=== PATIENT | female | born 1945 | race Caucasian/White ===

== ENCOUNTER 2021-03-26 17:43 | Emergency (ER) | payer MEDICARE, MEDICAID ==
[2021-03-26 18:03] LABS: Bilirubin Negative (Negative); Blood, Urine Moderate (Negative); Clarity Cloudy (Clear); Glucose, Urine (Dipstick) Negative (Negative); Ketone, Urine Negative (Negative); Leukocyte Large (Negative); Nitrite Negative (Negative); Protein, Urine (Dipstick) 30 mg/dL (Neg-Trace); Urobilinogen 0.2 mg/dL (Less than 2)
[2021-03-26 18:06] LABS: Bacteria/HPF 3+ HPF (None Seen); RBC/HPF 0-3 HPF (0-3); Squamous Epithelial 0-3 HPF (0-3); WBC/HPF Greater Than 50 HPF (0-3)
[2021-03-26 18:23] LABS: #Basophils 0.1 thou/uL (0.0-0.2); #Lymphocytes 0.4 thou/uL (1.20-3.40); #Monocytes 0.5 thou/uL (0.11-0.59); #Neutrophils 3.2 thou/uL (1.40-6.50); %Basophils 1.3 % (0.0-1.0); %Eosinophils 0.6 % (0.0-10.0); %Lymphocytes 10.1 % (21.0-51.0); %Monocytes 12.6 % (0.0-10.0); %Neutrophils 75.3 % (42.0-75.0); Hemoglobin 9.2 g/dL (12.0-16.0); Mean Corpuscular Hemoglobin 31.3 pg (27.0-31.0); Mean Corpuscular Volume 89.4 fL (78.0-98.0); Mean Platelet Volume 6.2 fL (7.4-10.4); Platelet Count 191 thou/uL (130-400); RBC Distribution Width 14.1 % (11.5-14.5); Red Blood Cell (RBC) Count 2.95 mill/uL (4.20-5.40); White Blood Cell (WBC) Count 4.3 thou/uL (4.8-10.8)
[2021-03-26] MEDS ORDERED: cefTRIAXone\\ROCEPHIN 1 GM VIAL ONE (18:35)
[2021-03-26] MEDS ORDERED: Sodium Chloride 0.9% 100 ML ONE (18:35)
[2021-03-26 18:37] LABS: ALT (SGPT) 10 U/L (8-55); AST (SGOT) 13 U/L (5-34); Albumin 2.5 g/dL (3.4-4.8); Alkaline Phosphatase 63 U/L (40-110); Anion Gap 16 mmol/L (10-20); BUN (Urea Nitrogen) 20 mg/dL (9.8-20.1); Bilirubin, Total 0.7 mg/dL (0.2-1.2); Calc. Creatinine Clearance 0 mL/min (70-130); Calcium 8.4 mg/dL (7.8-10.44); Carbon Dioxide 23 mmol/L (23-31); Chloride 102 mmol/L (98-107); Globulin 3.6 g/dL (2.4-3.5); Glucose 172 mg/dL (83-110); Potassium 4.6 mmol/L (3.5-5.1); Protein, Total 6.1 g/dL (5.8-8.1); Sodium 136 mmol/L (136-145)
== END 2021-03-26 19:05 | disposition home or self-care (01) ==
LOC: BURERS 17:43
DX: N39.0 Urinary tract infection, site not specified (principal); E11.9 Type 2 diabetes mellitus without complications; I10 Essential (primary) hypertension; Z79.899 Other long term (current) drug therapy; Z79.4 Long term (current) use of insulin
CPT/HCPCS: 80053; 81003; 81015; 83605; 84484; 85025; 87077; 87086; 87186; 96374; J0696; J3490

== ENCOUNTER 2021-06-14 19:00 | Emergency (ER) | payer MEDICARE, MEDICAID ==
[2021-06-14 20:06] LABS: #Basophils 0.1 thou/uL (0.0-0.2); #Eosinphils 0.3 thou/uL (0.0-0.7); #Lymphocytes 1.2 thou/uL (1.20-3.40); #Monocytes 0.4 thou/uL (0.11-0.59); #Neutrophils 2.7 thou/uL (1.40-6.50); %Basophils 1.7 % (0.0-1.0); %Eosinophils 5.8 % (0.0-10.0); %Lymphocytes 26.3 % (21.0-51.0); %Monocytes 9.1 % (0.0-10.0); %Neutrophils 57.1 % (42.0-75.0); Hemoglobin 12.2 g/dL (12.0-16.0); Mean Corpuscular HGB CONC 34.6 g/dL (32.0-36.0); Mean Corpuscular Hemoglobin 29.3 pg (27.0-31.0); Mean Corpuscular Volume 84.6 fL (78.0-98.0); Mean Platelet Volume 7.6 fL (7.4-10.4); Platelet Count 135 thou/uL (130-400); RBC Distribution Width 13.7 % (11.5-14.5); Red Blood Cell (RBC) Count 4.16 mill/uL (4.20-5.40); White Blood Cell (WBC) Count 4.7 thou/uL (4.8-10.8)
[2021-06-14 20:08] LABS: Bilirubin Negative (Negative); Blood, Urine Small (Negative); Clarity Cloudy (Clear); Glucose, Urine (Dipstick) Negative (Negative); Ketone, Urine Negative (Negative); Leukocyte Large (Negative); Nitrite Negative (Negative); Protein, Urine (Dipstick) 30 mg/dL (Neg-Trace); Urobilinogen 0.2 mg/dL (Less than 2)
[2021-06-14 20:15] LABS: RBC/HPF 0-3 HPF (0-3); Squamous Epithelial 0-3 HPF (0-3); Transitional Epithelial 0-3 HPF (None Seen); WBC/HPF Greater than 50 HPF (0-3)
[2021-06-14 20:16] LABS: Bacteria/HPF 3+ HPF (None Seen); Epithelial Cast 0-3 LPF (None Seen)
[2021-06-14 20:24] LABS: ALT (SGPT) 18 U/L (8-55); AST (SGOT) 23 U/L (5-34); Albumin 3.3 g/dL (3.4-4.8); Alkaline Phosphatase 57 U/L (40-110); Anion Gap 13 mmol/L (10-20); BUN (Urea Nitrogen) 24 mg/dL (9.8-20.1); Bilirubin, Total 0.5 mg/dL (0.2-1.2); Calc. Creatinine Clearance 0 mL/min (70-130); Calcium 9.7 mg/dL (7.8-10.44); Carbon Dioxide 26 mmol/L (23-31); Chloride 104 mmol/L (98-107); Globulin 3.9 g/dL (2.4-3.5); Glucose 159 mg/dL (83-110); Potassium 4.3 mmol/L (3.5-5.1); Protein, Total 7.2 g/dL (5.8-8.1); Sodium 139 mmol/L (136-145)
[2021-06-14] MEDS ORDERED: Nitrofurantoin Monohyd/M-Cryst 100 MG CAP ONE (20:59)
== END 2021-06-14 21:05 | disposition home or self-care (01) ==
LOC: BURERS 19:00
DX: N39.0 Urinary tract infection, site not specified (principal); E11.9 Type 2 diabetes mellitus without complications; I10 Essential (primary) hypertension; Z79.4 Long term (current) use of insulin; Z79.899 Other long term (current) drug therapy
CPT/HCPCS: 36415; 71045; 80053; 81003; 81015; 85025; 87077; 87086; 87186; 99283

== ENCOUNTER 2022-05-16 15:27 | Inpatient (IN) | payer MEDICARE, MEDICAID ==
[2022-05-16 16:56] VITALS: BMI 22.2
[2022-05-16] MEDS ORDERED: Senokot S 8.6-50 MG TAB PO PRN (17:37)
[2022-05-16] MEDS: traMADol HCl 50 MG TAB PO PRN (21:30)
[2022-05-16] MEDS: ALPHA LIPOIC ACID 300 MG PO SCH (21:35)
[2022-05-17] MEDS ORDERED: Polyethylene Glycol OPTH DROP 15 ML BOT EA EYE SCH (09:00)
[2022-05-17] MEDS: Alogliptin 6.25 MG TAB PO SCH (09:44)
[2022-05-17] MEDS: Losartan 25 MG TAB PO SCH (09:44)
[2022-05-17] MEDS: ALPHA LIPOIC ACID 300 MG PO SCH ×2 (09:45→20:59)
[2022-05-17] MEDS: Polyethylene Glycol 3350 17 GM Packet PO SCH ×2 (09:45→21:00)
[2022-05-17] MEDS: ASCORBIC ACID PO SCH (09:46)
[2022-05-17] MEDS: CRANBERRY PO SCH (09:46)
[2022-05-17] MEDS: traMADol HCl 50 MG TAB PO PRN ×2 (09:50→18:10)
[2022-05-17 11:25] LABS: Hemoglobin A1c 6.9 % (4.0-6.0)
[2022-05-18] MEDS: Losartan 25 MG TAB PO SCH (10:30)
[2022-05-18] MEDS: Alogliptin 6.25 MG TAB PO SCH (10:30)
[2022-05-18] MEDS: CRANBERRY PO SCH (10:31)
[2022-05-18] MEDS: ASCORBIC ACID PO SCH (10:31)
[2022-05-18] MEDS: Polyethylene Glycol 3350 17 GM Packet PO SCH ×2 (10:31→20:50)
[2022-05-18] MEDS: ALPHA LIPOIC ACID 300 MG PO SCH ×2 (10:31→20:50)
[2022-05-18] MEDS: traMADol HCl 50 MG TAB PO PRN ×2 (10:48→20:48)
[2022-05-18] MEDS: Timolol 0.5% Ophth Soln 5 ml Bottle L EYE SCH (20:47)
[2022-05-18] MEDS: Brimonidine Tartrate 0.2% Ophth Soln 5 ml Bottle L EYE SCH (20:48)
[2022-05-19] MEDS: Timolol 0.5% Ophth Soln 5 ml Bottle L EYE SCH (10:12)
[2022-05-19] MEDS: Brimonidine Tartrate 0.2% Ophth Soln 5 ml Bottle L EYE SCH ×2 (10:13→21:43)
[2022-05-19] MEDS: Alogliptin 6.25 MG TAB PO SCH (10:14)
[2022-05-19] MEDS: Proctozone-HC 30 GM TUBE TOP PRN (10:14)
[2022-05-19] MEDS: ASCORBIC ACID PO SCH (10:14)
[2022-05-19] MEDS: Polyethylene Glycol 3350 17 GM Packet PO SCH ×2 (10:14→21:43)
[2022-05-19] MEDS: CRANBERRY PO SCH (10:14)
[2022-05-19] MEDS: ALPHA LIPOIC ACID 300 MG PO SCH ×2 (10:14→21:44)
[2022-05-19] MEDS: traMADol HCl 50 MG TAB PO PRN (10:25)
[2022-05-19] MEDS: Losartan 25 MG TAB PO SCH ×2 (10:28→21:43)
[2022-05-19] MEDS: Timolol 0.25% Ophth Soln 5 ml Bottle L EYE SCH (21:45)
[2022-05-20] MEDS: Polyethylene Glycol 3350 17 GM Packet PO SCH ×2 (08:52→21:19)
[2022-05-20] MEDS: Losartan 25 MG TAB PO SCH ×2 (08:54→21:17)
[2022-05-20] MEDS: Alogliptin 6.25 MG TAB PO SCH (08:54)
[2022-05-20] MEDS: Brimonidine Tartrate 0.2% Ophth Soln 5 ml Bottle L EYE SCH (08:56)
[2022-05-20] MEDS: Timolol 0.25% Ophth Soln 5 ml Bottle L EYE SCH (08:58)
[2022-05-20] MEDS: CRANBERRY PO SCH (09:01)
[2022-05-20] MEDS: ASCORBIC ACID PO SCH (09:01)
[2022-05-20] MEDS: ALPHA LIPOIC ACID 300 MG PO SCH ×2 (09:01→21:18)
[2022-05-20] MEDS: traMADol HCl 50 MG TAB PO PRN (16:08)
[2022-05-20] MEDS ORDERED: Timolol 0.25% Ophth Soln 5 ml Bottle EA EYE SCH (21:00)
[2022-05-20] MEDS: Brimonidine Tartrate 0.2% Ophth Soln 5 ml Bottle EA EYE SCH (21:15)
[2022-05-21 06:01] LABS: Anion Gap 12 mmol/L (10-20); BUN (Urea Nitrogen) 10 mg/dL (9.8-20.1); Calc. Creatinine Clearance 60 mL/min (70-130); Calcium 8.8 mg/dL (7.8-10.44); Carbon Dioxide 27 mmol/L (23-31); Chloride 101 mmol/L (98-107); Estimated GFR 92; Glucose 182 mg/dL (83-110); Sodium 136 mmol/L (136-145)
[2022-05-21 07:41] LABS: #Basophils 0.1 thou/uL (0.0-0.2); #Eosinphils 0.1 thou/uL (0.0-0.7); #Lymphocytes 1.3 thou/uL (1.20-3.40); #Monocytes 0.5 thou/uL (0.11-0.59); #Neutrophils 3.3 thou/uL (1.40-6.50); %Basophils 1.3 % (0.0-1.0); %Eosinophils 1.9 % (0.0-10.0); %Lymphocytes 24.1 % (21.0-51.0); %Monocytes 10.1 % (0.0-10.0); %Neutrophils 62.5 % (42.0-75.0); Hemoglobin 11.3 g/dL (12.0-16.0); Mean Corpuscular HGB CONC 36.4 g/dL (32.0-36.0); Mean Corpuscular Hemoglobin 31.3 pg (27.0-31.0); Mean Platelet Volume 7.6 fL (7.4-10.4); Platelet Count 168 thou/uL (130-400); RBC Distribution Width 11.9 % (11.5-14.5); Red Blood Cell (RBC) Count 3.59 mill/uL (4.20-5.40); White Blood Cell (WBC) Count 5.3 thou/uL (4.8-10.8)
[2022-05-21] MEDS: Dorzolamide HCl 2% Ophth Soln 10 ml Bottle EA EYE SCH ×2 (09:29→21:26)
[2022-05-21] MEDS: Losartan 25 MG TAB PO SCH ×2 (09:33→21:25)
[2022-05-21] MEDS: Alogliptin 6.25 MG TAB PO SCH (09:33)
[2022-05-21] MEDS: ALPHA LIPOIC ACID 300 MG PO SCH ×2 (09:34→21:26)
[2022-05-21] MEDS: Polyethylene Glycol 3350 17 GM Packet PO SCH ×2 (09:34→21:28)
[2022-05-21] MEDS: Brimonidine Tartrate 0.2% Ophth Soln 5 ml Bottle EA EYE SCH ×2 (09:35→21:27)
[2022-05-21] MEDS: Timolol 0.5% Ophth Soln 5 ml Bottle L EYE SCH ×2 (09:36→21:27)
[2022-05-21] MEDS: Proctozone-HC 30 GM TUBE TOP PRN (09:37)
[2022-05-21] MEDS: traMADol HCl 50 MG TAB PO PRN ×2 (10:00→21:47)
[2022-05-21] MEDS: Latanoprost 0.005% Ophth Soln 2.5 ml Bottle L EYE SCH (21:26)
[2022-05-22] MEDS: Polyethylene Glycol 3350 17 GM Packet PO SCH ×3 (00:07→22:22)
[2022-05-22] MEDS: Timolol 0.5% Ophth Soln 5 ml Bottle L EYE SCH ×2 (09:11→22:17)
[2022-05-22] MEDS: traMADol HCl 50 MG TAB PO PRN (09:17)
[2022-05-22] MEDS: Losartan 25 MG TAB PO SCH ×2 (09:19→22:16)
[2022-05-22] MEDS: Alogliptin 6.25 MG TAB PO SCH (09:19)
[2022-05-22] MEDS: Brimonidine Tartrate 0.2% Ophth Soln 5 ml Bottle EA EYE SCH ×2 (09:20→22:16)
[2022-05-22] MEDS: Dorzolamide HCl 2% Ophth Soln 10 ml Bottle EA EYE SCH ×2 (09:20→22:18)
[2022-05-22] MEDS: ALPHA LIPOIC ACID 300 MG PO SCH ×2 (09:21→22:16)
[2022-05-22] MEDS: Latanoprost 0.005% Ophth Soln 2.5 ml Bottle L EYE SCH (22:17)
[2022-05-22] MEDS: Proctozone-HC 30 GM TUBE TOP PRN (22:35)
[2022-05-23] MEDS: Polyethylene Glycol 3350 17 GM Packet PO SCH ×2 (09:00→21:57)
[2022-05-23] MEDS: Losartan 25 MG TAB PO SCH ×2 (09:00→21:46)
[2022-05-23] MEDS: Brimonidine Tartrate 0.2% Ophth Soln 5 ml Bottle EA EYE SCH ×2 (09:02→21:48)
[2022-05-23] MEDS: Alogliptin 6.25 MG TAB PO SCH (09:02)
[2022-05-23] MEDS: Timolol 0.5% Ophth Soln 5 ml Bottle L EYE SCH ×2 (09:03→21:56)
[2022-05-23] MEDS: Dorzolamide HCl 2% Ophth Soln 10 ml Bottle EA EYE SCH ×2 (09:03→21:44)
[2022-05-23] MEDS: ALPHA LIPOIC ACID 300 MG PO SCH ×2 (09:04→21:46)
[2022-05-23] MEDS: traMADol HCl 50 MG TAB PO PRN (17:24)
[2022-05-23] MEDS: Latanoprost 0.005% Ophth Soln 2.5 ml Bottle L EYE SCH (21:53)
[2022-05-24] MEDS: traMADol HCl 50 MG TAB PO PRN ×2 (01:37→09:50)
[2022-05-24] MEDS: Losartan 25 MG TAB PO SCH ×2 (09:36→21:47)
[2022-05-24] MEDS: Timolol 0.5% Ophth Soln 5 ml Bottle L EYE SCH ×2 (09:36→22:13)
[2022-05-24] MEDS: Alogliptin 6.25 MG TAB PO SCH (09:36)
[2022-05-24] MEDS: Dorzolamide HCl 2% Ophth Soln 10 ml Bottle EA EYE SCH ×2 (09:36→21:50)
[2022-05-24] MEDS: Polyethylene Glycol 3350 17 GM Packet PO SCH ×2 (09:37→21:48)
[2022-05-24] MEDS: ALPHA LIPOIC ACID 300 MG PO SCH ×3 (09:37→22:05)
[2022-05-24] MEDS: Brimonidine Tartrate 0.2% Ophth Soln 5 ml Bottle EA EYE SCH ×2 (09:37→21:45)
[2022-05-24] MEDS: Latanoprost 0.005% Ophth Soln 2.5 ml Bottle L EYE SCH (21:52)
[2022-05-25] MEDS: Ondansetron ODT 4 MG TAB SL PRN (06:52)
[2022-05-25] MEDS: traMADol HCl 50 MG TAB PO PRN ×2 (07:36→12:04)
[2022-05-25] MEDS: Brimonidine Tartrate 0.2% Ophth Soln 5 ml Bottle EA EYE SCH ×2 (09:02→22:36)
[2022-05-25] MEDS: Dorzolamide HCl 2% Ophth Soln 10 ml Bottle EA EYE SCH ×2 (09:02→22:19)
[2022-05-25] MEDS: Timolol 0.5% Ophth Soln 5 ml Bottle L EYE SCH ×2 (09:03→22:42)
[2022-05-25] MEDS: Alogliptin 6.25 MG TAB PO SCH (09:03)
[2022-05-25] MEDS: Polyethylene Glycol 3350 17 GM Packet PO SCH ×2 (09:03→22:19)
[2022-05-25] MEDS: ALPHA LIPOIC ACID 300 MG PO SCH ×2 (09:03→22:43)
[2022-05-25] MEDS: Losartan 25 MG TAB PO SCH ×2 (09:03→22:19)
[2022-05-25] MEDS: Latanoprost 0.005% Ophth Soln 2.5 ml Bottle L EYE SCH (22:39)
[2022-05-26] MEDS: Alogliptin 6.25 MG TAB PO SCH (10:06)
[2022-05-26] MEDS: Losartan 25 MG TAB PO SCH ×2 (10:06→21:41)
[2022-05-26] MEDS: Brimonidine Tartrate 0.2% Ophth Soln 5 ml Bottle EA EYE SCH ×2 (10:07→21:43)
[2022-05-26] MEDS: ALPHA LIPOIC ACID 300 MG PO SCH ×2 (10:07→21:45)
[2022-05-26] MEDS: Timolol 0.5% Ophth Soln 5 ml Bottle L EYE SCH ×2 (10:07→21:53)
[2022-05-26] MEDS: Polyethylene Glycol 3350 17 GM Packet PO SCH ×2 (10:08→21:41)
[2022-05-26] MEDS: Dorzolamide HCl 2% Ophth Soln 10 ml Bottle EA EYE SCH ×2 (10:08→21:40)
[2022-05-26] MEDS: traMADol HCl 50 MG TAB PO PRN ×2 (10:21→21:49)
[2022-05-26] MEDS: Latanoprost 0.005% Ophth Soln 2.5 ml Bottle L EYE SCH (21:50)
[2022-05-27] MEDS: Ondansetron ODT 4 MG TAB SL PRN (09:29)
[2022-05-27] MEDS: Dorzolamide HCl 2% Ophth Soln 10 ml Bottle EA EYE SCH ×2 (09:30→21:03)
[2022-05-27] MEDS: Polyethylene Glycol 3350 17 GM Packet PO SCH ×2 (09:30→20:54)
[2022-05-27] MEDS: Losartan 25 MG TAB PO SCH ×2 (09:32→20:54)
[2022-05-27] MEDS: Alogliptin 6.25 MG TAB PO SCH (09:33)
[2022-05-27] MEDS: Timolol 0.5% Ophth Soln 5 ml Bottle L EYE SCH ×2 (09:33→21:08)
[2022-05-27] MEDS: ALPHA LIPOIC ACID 300 MG PO SCH ×2 (09:34→21:05)
[2022-05-27] MEDS: Brimonidine Tartrate 0.2% Ophth Soln 5 ml Bottle EA EYE SCH ×2 (09:35→20:52)
[2022-05-27] MEDS: traMADol HCl 50 MG TAB PO PRN (09:48)
[2022-05-27] MEDS: Latanoprost 0.005% Ophth Soln 2.5 ml Bottle L EYE SCH (20:56)
[2022-05-28] MEDS: Ondansetron ODT 4 MG TAB SL PRN (07:36)
[2022-05-28] MEDS: traMADol HCl 50 MG TAB PO PRN (08:42)
[2022-05-28] MEDS: Megestrol Acetate 40 MG TAB PO SCH ×2 (08:45→20:27)
[2022-05-28] MEDS: Losartan 25 MG TAB PO SCH ×2 (08:45→20:27)
[2022-05-28] MEDS: Alogliptin 6.25 MG TAB PO SCH (08:45)
[2022-05-28] MEDS: Polyethylene Glycol 3350 17 GM Packet PO SCH ×2 (08:46→20:41)
[2022-05-28] MEDS: Dorzolamide HCl 2% Ophth Soln 10 ml Bottle EA EYE SCH ×2 (08:47→20:32)
[2022-05-28] MEDS: ALPHA LIPOIC ACID 300 MG PO SCH ×2 (08:47→20:28)
[2022-05-28] MEDS: Timolol 0.5% Ophth Soln 5 ml Bottle L EYE SCH ×2 (09:08→20:44)
[2022-05-28] MEDS: Brimonidine Tartrate 0.2% Ophth Soln 5 ml Bottle EA EYE SCH ×2 (09:08→20:26)
[2022-05-28] MEDS: Latanoprost 0.005% Ophth Soln 2.5 ml Bottle L EYE SCH (20:39)
[2022-05-29] MEDS: Ondansetron ODT 4 MG TAB SL PRN ×2 (00:37→08:18)
[2022-05-29] MEDS: traMADol HCl 50 MG TAB PO PRN ×2 (08:17→22:51)
[2022-05-29] MEDS: Losartan 25 MG TAB PO SCH ×2 (08:17→20:46)
[2022-05-29] MEDS: Dorzolamide HCl 2% Ophth Soln 10 ml Bottle EA EYE SCH ×2 (08:19→20:56)
[2022-05-29] MEDS: Timolol 0.5% Ophth Soln 5 ml Bottle L EYE SCH ×2 (08:19→20:44)
[2022-05-29] MEDS: Brimonidine Tartrate 0.2% Ophth Soln 5 ml Bottle EA EYE SCH ×2 (08:19→20:51)
[2022-05-29] MEDS: Polyethylene Glycol 3350 17 GM Packet PO SCH ×2 (13:02→20:55)
[2022-05-29] MEDS: Megestrol Acetate 40 MG TAB PO SCH ×2 (13:02→20:46)
[2022-05-29] MEDS: Alogliptin 6.25 MG TAB PO SCH (13:02)
[2022-05-29] MEDS: Latanoprost 0.005% Ophth Soln 2.5 ml Bottle L EYE SCH (21:01)
[2022-05-30] MEDS: Ondansetron ODT 4 MG TAB SL PRN ×2 (03:59→19:17)
[2022-05-30] MEDS: traMADol HCl 50 MG TAB PO PRN ×2 (09:16→20:48)
[2022-05-30] MEDS: Megestrol Acetate 40 MG TAB PO SCH ×2 (09:17→20:47)
[2022-05-30] MEDS: Losartan 25 MG TAB PO SCH ×2 (09:17→20:50)
[2022-05-30] MEDS: Timolol 0.5% Ophth Soln 5 ml Bottle L EYE SCH ×2 (09:18→21:07)
[2022-05-30] MEDS: Dorzolamide HCl 2% Ophth Soln 10 ml Bottle EA EYE SCH ×2 (09:18→21:04)
[2022-05-30] MEDS: Brimonidine Tartrate 0.2% Ophth Soln 5 ml Bottle EA EYE SCH ×2 (09:18→21:02)
[2022-05-30] MEDS: Polyethylene Glycol 3350 17 GM Packet PO SCH ×2 (09:21→20:47)
[2022-05-30] MEDS: Alogliptin 6.25 MG TAB PO SCH (09:28)
[2022-05-30] MEDS: Latanoprost 0.005% Ophth Soln 2.5 ml Bottle L EYE SCH (21:05)
[2022-05-31] MEDS ORDERED: diphenhydrAMINE 25 MG CAP PO SCH (00:15)
[2022-05-31] MEDS: traMADol HCl 50 MG TAB PO PRN ×3 (03:34→21:15)
[2022-05-31] MEDS: Polyethylene Glycol 3350 17 GM Packet PO SCH ×2 (10:04→21:27)
[2022-05-31] MEDS: Alogliptin 6.25 MG TAB PO SCH (10:04)
[2022-05-31] MEDS: Losartan 25 MG TAB PO SCH ×2 (10:04→21:17)
[2022-05-31] MEDS: Megestrol Acetate 40 MG TAB PO SCH ×2 (10:04→21:17)
[2022-05-31] MEDS: Brimonidine Tartrate 0.2% Ophth Soln 5 ml Bottle EA EYE SCH ×2 (10:05→21:19)
[2022-05-31] MEDS: Timolol 0.5% Ophth Soln 5 ml Bottle L EYE SCH ×2 (10:05→21:12)
[2022-05-31] MEDS: Dorzolamide HCl 2% Ophth Soln 10 ml Bottle EA EYE SCH ×2 (10:05→21:06)
[2022-05-31] MEDS: Ondansetron ODT 4 MG TAB SL PRN (21:07)
[2022-05-31] MEDS: diphenhydrAMINE 25 MG CAP PO PRN (21:16)
[2022-05-31] MEDS: Latanoprost 0.005% Ophth Soln 2.5 ml Bottle L EYE SCH (21:26)
[2022-06-01] MEDS: traMADol HCl 50 MG TAB PO PRN (09:43)
[2022-06-01] MEDS: Ondansetron ODT 4 MG TAB SL PRN (09:45)
[2022-06-01] MEDS: Polyethylene Glycol 3350 17 GM Packet PO SCH ×2 (09:45→20:49)
[2022-06-01] MEDS: Alogliptin 6.25 MG TAB PO SCH (09:45)
[2022-06-01] MEDS: Megestrol Acetate 40 MG TAB PO SCH ×2 (09:46→20:34)
[2022-06-01] MEDS: Brimonidine Tartrate 0.2% Ophth Soln 5 ml Bottle EA EYE SCH ×2 (09:46→20:33)
[2022-06-01] MEDS: Dorzolamide HCl 2% Ophth Soln 10 ml Bottle EA EYE SCH ×2 (09:46→20:43)
[2022-06-01] MEDS: Losartan 25 MG TAB PO SCH ×2 (09:46→20:34)
[2022-06-01] MEDS: Timolol 0.5% Ophth Soln 5 ml Bottle L EYE SCH ×2 (09:47→20:37)
[2022-06-01] MEDS: diphenhydrAMINE 25 MG CAP PO PRN (15:57)
[2022-06-01] MEDS: Latanoprost 0.005% Ophth Soln 2.5 ml Bottle L EYE SCH (20:48)
[2022-06-02] MEDS: traMADol HCl 50 MG TAB PO PRN ×3 (01:36→21:05)
[2022-06-02] MEDS: Ondansetron ODT 4 MG TAB SL PRN ×3 (01:38→21:06)
[2022-06-02] MEDS: Timolol 0.5% Ophth Soln 5 ml Bottle L EYE SCH ×2 (09:43→21:20)
[2022-06-02] MEDS: Dorzolamide HCl 2% Ophth Soln 10 ml Bottle EA EYE SCH ×2 (09:43→21:15)
[2022-06-02] MEDS: Alogliptin 6.25 MG TAB PO SCH (09:45)
[2022-06-02] MEDS: Megestrol Acetate 40 MG TAB PO SCH ×2 (09:45→21:05)
[2022-06-02] MEDS: Brimonidine Tartrate 0.2% Ophth Soln 5 ml Bottle EA EYE SCH ×2 (09:45→21:09)
[2022-06-02] MEDS: Losartan 25 MG TAB PO SCH ×2 (09:45→21:05)
[2022-06-02] MEDS: Polyethylene Glycol 3350 17 GM Packet PO SCH ×2 (09:46→21:14)
[2022-06-02] MEDS: Latanoprost 0.005% Ophth Soln 2.5 ml Bottle L EYE SCH (21:02)
[2022-06-03] MEDS: traMADol HCl 50 MG TAB PO PRN ×3 (03:09→18:44)
[2022-06-03] MEDS: Ondansetron ODT 4 MG TAB SL PRN ×2 (07:52→18:32)
[2022-06-03] MEDS: Alogliptin 6.25 MG TAB PO SCH (09:41)
[2022-06-03] MEDS: Losartan 25 MG TAB PO SCH ×2 (09:41→20:40)
[2022-06-03] MEDS: Polyethylene Glycol 3350 17 GM Packet PO SCH ×2 (09:41→20:41)
[2022-06-03] MEDS: Megestrol Acetate 40 MG TAB PO SCH ×2 (09:41→20:41)
[2022-06-03] MEDS: Dorzolamide HCl 2% Ophth Soln 10 ml Bottle EA EYE SCH ×2 (09:54→20:41)
[2022-06-03] MEDS: Brimonidine Tartrate 0.2% Ophth Soln 5 ml Bottle EA EYE SCH ×2 (09:54→20:47)
[2022-06-03] MEDS: Timolol 0.5% Ophth Soln 5 ml Bottle L EYE SCH ×2 (09:55→20:56)
[2022-06-03] MEDS: Latanoprost 0.005% Ophth Soln 2.5 ml Bottle L EYE SCH (20:52)
[2022-06-04] MEDS: traMADol HCl 50 MG TAB PO PRN ×2 (00:40→09:32)
[2022-06-04] MEDS: Ondansetron ODT 4 MG TAB SL PRN ×3 (02:45→23:28)
[2022-06-04] MEDS: Timolol 0.5% Ophth Soln 5 ml Bottle L EYE SCH ×2 (09:39→21:24)
[2022-06-04] MEDS: Dorzolamide HCl 2% Ophth Soln 10 ml Bottle EA EYE SCH ×2 (09:39→21:16)
[2022-06-04] MEDS: Brimonidine Tartrate 0.2% Ophth Soln 5 ml Bottle EA EYE SCH ×2 (09:39→21:12)
[2022-06-04] MEDS: Polyethylene Glycol 3350 17 GM Packet PO SCH ×2 (09:42→21:14)
[2022-06-04] MEDS: Alogliptin 6.25 MG TAB PO SCH (09:42)
[2022-06-04] MEDS: Megestrol Acetate 40 MG TAB PO SCH ×2 (09:42→21:13)
[2022-06-04] MEDS: Losartan 25 MG TAB PO SCH ×2 (09:42→21:13)
[2022-06-04] MEDS: Nystatin Cream 15 GM TUBE TOP SCH ×2 (09:42→21:13)
[2022-06-04] MEDS: Latanoprost 0.005% Ophth Soln 2.5 ml Bottle L EYE SCH (21:20)
[2022-06-05] MEDS: traMADol HCl 50 MG TAB PO PRN ×3 (00:22→18:55)
[2022-06-05] MEDS: diphenhydrAMINE 25 MG CAP PO PRN (02:01)
[2022-06-05] MEDS: Timolol 0.5% Ophth Soln 5 ml Bottle L EYE SCH ×2 (09:27→21:31)
[2022-06-05] MEDS: Dorzolamide HCl 2% Ophth Soln 10 ml Bottle EA EYE SCH ×2 (09:27→21:14)
[2022-06-05] MEDS: Brimonidine Tartrate 0.2% Ophth Soln 5 ml Bottle EA EYE SCH ×2 (09:28→21:21)
[2022-06-05] MEDS: Losartan 25 MG TAB PO SCH ×2 (09:29→21:16)
[2022-06-05] MEDS: Nystatin Cream 15 GM TUBE TOP SCH ×2 (09:29→21:16)
[2022-06-05] MEDS: Polyethylene Glycol 3350 17 GM Packet PO SCH ×2 (09:30→21:33)
[2022-06-05] MEDS: Alogliptin 6.25 MG TAB PO SCH (09:30)
[2022-06-05] MEDS: Megestrol Acetate 40 MG TAB PO SCH ×2 (09:30→21:16)
[2022-06-05] MEDS: Latanoprost 0.005% Ophth Soln 2.5 ml Bottle L EYE SCH (21:25)
[2022-06-06] MEDS: diphenhydrAMINE 25 MG CAP PO PRN ×2 (00:40→22:35)
[2022-06-06] MEDS: traMADol HCl 50 MG TAB PO PRN ×2 (00:41→16:29)
[2022-06-06] MEDS: Ondansetron ODT 4 MG TAB SL PRN (09:34)
[2022-06-06] MEDS: Nystatin Cream 15 GM TUBE TOP SCH ×2 (09:36→22:12)
[2022-06-06] MEDS: Timolol 0.5% Ophth Soln 5 ml Bottle L EYE SCH ×2 (09:36→22:24)
[2022-06-06] MEDS: Dorzolamide HCl 2% Ophth Soln 10 ml Bottle EA EYE SCH ×2 (09:36→22:11)
[2022-06-06] MEDS: Brimonidine Tartrate 0.2% Ophth Soln 5 ml Bottle EA EYE SCH ×2 (09:37→22:16)
[2022-06-06] MEDS: Alogliptin 6.25 MG TAB PO SCH (09:39)
[2022-06-06] MEDS: Losartan 25 MG TAB PO SCH ×2 (09:39→22:14)
[2022-06-06] MEDS: Polyethylene Glycol 3350 17 GM Packet PO SCH ×2 (09:39→22:17)
[2022-06-06] MEDS: Megestrol Acetate 40 MG TAB PO SCH ×2 (09:40→22:21)
[2022-06-06] MEDS: Proctozone-HC 30 GM TUBE TOP PRN (22:19)
[2022-06-06] MEDS: Latanoprost 0.005% Ophth Soln 2.5 ml Bottle L EYE SCH (22:20)
[2022-06-07] MEDS: Ondansetron ODT 4 MG TAB SL PRN ×2 (01:36→08:26)
[2022-06-07] MEDS: traMADol HCl 50 MG TAB PO PRN ×2 (02:51→13:56)
[2022-06-07] MEDS: Losartan 25 MG TAB PO SCH ×2 (08:28→20:52)
[2022-06-07] MEDS: Alogliptin 6.25 MG TAB PO SCH (08:29)
[2022-06-07] MEDS: Nystatin Cream 15 GM TUBE TOP SCH ×2 (08:30→20:57)
[2022-06-07] MEDS: Megestrol Acetate 40 MG TAB PO SCH ×2 (08:30→20:57)
[2022-06-07] MEDS: Timolol 0.5% Ophth Soln 5 ml Bottle L EYE SCH ×2 (08:32→20:53)
[2022-06-07] MEDS: Brimonidine Tartrate 0.2% Ophth Soln 5 ml Bottle EA EYE SCH ×2 (08:36→20:52)
[2022-06-07] MEDS: Dorzolamide HCl 2% Ophth Soln 10 ml Bottle EA EYE SCH ×2 (08:37→20:52)
[2022-06-07] MEDS: Polyethylene Glycol 3350 17 GM Packet PO SCH ×2 (08:42→20:54)
[2022-06-07] MEDS: diphenhydrAMINE 25 MG CAP PO PRN ×2 (12:04→20:57)
[2022-06-07] MEDS: Latanoprost 0.005% Ophth Soln 2.5 ml Bottle L EYE SCH (20:52)
[2022-06-08] MEDS: traMADol HCl 50 MG TAB PO PRN ×2 (07:14→13:50)
[2022-06-08] MEDS: Megestrol Acetate 40 MG TAB PO SCH ×2 (08:12→21:32)
[2022-06-08] MEDS: Alogliptin 6.25 MG TAB PO SCH (09:09)
[2022-06-08] MEDS: Nystatin Cream 15 GM TUBE TOP SCH ×2 (09:10→21:19)
[2022-06-08] MEDS: Losartan 25 MG TAB PO SCH ×2 (09:10→21:32)
[2022-06-08] MEDS: Polyethylene Glycol 3350 17 GM Packet PO SCH ×2 (09:10→21:18)
[2022-06-08] MEDS: Timolol 0.5% Ophth Soln 5 ml Bottle L EYE SCH ×2 (09:16→21:37)
[2022-06-08] MEDS: Brimonidine Tartrate 0.2% Ophth Soln 5 ml Bottle EA EYE SCH ×2 (09:20→21:27)
[2022-06-08] MEDS: Dorzolamide HCl 2% Ophth Soln 10 ml Bottle EA EYE SCH ×2 (09:24→21:20)
[2022-06-08] MEDS: Ondansetron ODT 4 MG TAB SL PRN (21:18)
[2022-06-08] MEDS: Latanoprost 0.005% Ophth Soln 2.5 ml Bottle L EYE SCH (21:32)
[2022-06-09 06:41] VITALS: BP 177/76; TEMP 98.3
[2022-06-09] MEDS: Timolol 0.5% Ophth Soln 5 ml Bottle L EYE SCH (08:20)
[2022-06-09] MEDS: Brimonidine Tartrate 0.2% Ophth Soln 5 ml Bottle EA EYE SCH (08:21)
[2022-06-09] MEDS: Dorzolamide HCl 2% Ophth Soln 10 ml Bottle EA EYE SCH (08:21)
[2022-06-09] MEDS: Polyethylene Glycol 3350 17 GM Packet PO SCH (08:23)
[2022-06-09] MEDS: Losartan 25 MG TAB PO SCH (08:24)
[2022-06-09] MEDS: Megestrol Acetate 40 MG TAB PO SCH (08:24)
[2022-06-09] MEDS: Alogliptin 6.25 MG TAB PO SCH (08:24)
[2022-06-09] MEDS: Nystatin Cream 15 GM TUBE TOP SCH (08:25)
== END 2022-06-09 14:45 | disposition home or self-care (01) | DRG 561 ==
LOC: BURMED 16:40
PROVIDERS: ADMIT Family Medicine; ATTEND Family Medicine
DX: S32.011D Stable burst fracture of first lumbar vertebra, subsequent encounter for fracture with routine healing (principal); S32.021D Stable burst fracture of second lumbar vertebra, subsequent encounter for fracture with routine healing; W19.XXXD Unspecified fall, subsequent encounter; K59.09 Other constipation; K22.2 Esophageal obstruction; E83.110 Hereditary hemochromatosis; Z20.822 Contact with and (suspected) exposure to COVID-19; E11.9 Type 2 diabetes mellitus without complications; E11.39 Type 2 diabetes mellitus with other diabetic ophthalmic complication; H42 Glaucoma in diseases classified elsewhere; K21.9 Gastro-esophageal reflux disease without esophagitis; M81.0 Age-related osteoporosis without current pathological fracture; Z88.1 Allergy status to other antibiotic agents; Z88.8 Allergy status to other drugs, medicaments and biological substances; Z79.899 Other long term (current) drug therapy; Z79.84 Long term (current) use of oral hypoglycemic drugs; Z79.82 Long term (current) use of aspirin; Z90.49 Acquired absence of other specified parts of digestive tract; Z90.710 Acquired absence of both cervix and uterus
CPT/HCPCS: 36415; 36416; 72100; 80048; 82728; 83036; 85025; Q0162; S0179; U0003; U0005

== ENCOUNTER 2022-07-22 13:09 | Outpatient (CLI) | payer MEDICARE, MEDICAID | END 2022-07-22 13:10 | disposition home or self-care (01) | LOC: BURRAD 13:09 | PROVIDERS: ATTEND Neurological Surgery | DX: M48.56XD Collapsed vertebra, not elsewhere classified, lumbar region, subsequent encounter for fracture with routine healing (principal) | CPT/HCPCS: 72100 ==

== ENCOUNTER 2023-07-08 19:24 | Emergency (ER) | payer MEDICARE, MEDICAID ==
[2023-07-08] MEDS ORDERED: Boostrix 0.5 ML (Tdap) VIAL (>/=7 yrs of age) ONE (19:57)
== END 2023-07-08 20:42 | disposition home or self-care (01) ==
LOC: BURERS 19:24
DX: S09.90XA Unspecified injury of head, initial encounter (principal); S01.01XA Laceration without foreign body of scalp, initial encounter; I10 Essential (primary) hypertension; E11.9 Type 2 diabetes mellitus without complications; W01.198A Fall on same level from slipping, tripping and stumbling with subsequent striking against other object, initial encounter; Z23 Encounter for immunization
CPT/HCPCS: 12001; 70450; 72125; 90471; 90715

== ENCOUNTER 2023-09-14 13:15 | Inpatient (IN) | payer MEDICARE, MEDICAID ==
[2023-09-14 16:13] VITALS: BMI 24.5
[2023-09-14] MEDS ORDERED: Famotidine 20 MG TAB PO PRN (16:43)
[2023-09-14] MEDS ORDERED: Ondansetron ODT 4 MG TAB PO PRN (16:43)
[2023-09-14] MEDS ORDERED: Artificial Tear Sol 15 ML BOT EA EYE PRN (16:56)
[2023-09-14] MEDS: Latanoprost 0.005% Ophth Soln 2.5 ml Bottle EA EYE SCH (22:29)
[2023-09-14] MEDS: prednisoLONE 1% Ophth Susp 5 ml Bottle EA EYE SCH (22:32)
[2023-09-14] MEDS: Timolol 0.5% Ophth Soln 5 ml Bottle EA EYE SCH (22:36)
[2023-09-15] MEDS ORDERED: Losartan 25 MG TAB PO SCH (09:00)
[2023-09-15] MEDS: Polyethylene Glycol 3350 17 GM Packet PO SCH (10:14)
[2023-09-15] MEDS: Folic Acid 1 MG TAB PO SCH (10:16)
[2023-09-15] MEDS: Losartan 25 MG TAB PO SCH (10:16)
[2023-09-15] MEDS: Docusate 100 MG CAP PO SCH (10:16)
[2023-09-15] MEDS: Multivitamin W/ Minerals 1 TAB PO SCH (10:16)
[2023-09-15] MEDS: Mirabegron ER 25 MG ER.TAB PO SCH (10:17)
[2023-09-15] MEDS: Timolol 0.5% Ophth Soln 5 ml Bottle EA EYE SCH ×2 (10:17→22:27)
[2023-09-15] MEDS: prednisoLONE 1% Ophth Susp 5 ml Bottle EA EYE SCH ×2 (10:19→22:29)
[2023-09-15] MEDS: RIVASTIGMINE TARTRATE 1.5 MG PO SCH (10:20)
[2023-09-15] MEDS: ESTRADIOL VAG SCH (10:20)
[2023-09-15] MEDS: cloNIDine 0.1 MG TAB PO PRN (17:13)
[2023-09-15] MEDS: Latanoprost 0.005% Ophth Soln 2.5 ml Bottle EA EYE SCH (22:24)
[2023-09-16] MEDS: Mirabegron ER 25 MG ER.TAB PO SCH (09:44)
[2023-09-16] MEDS: Losartan 25 MG TAB PO SCH (09:44)
[2023-09-16] MEDS: Multivitamin W/ Minerals 1 TAB PO SCH (09:48)
[2023-09-16] MEDS: Docusate 100 MG CAP PO SCH (09:48)
[2023-09-16] MEDS: Folic Acid 1 MG TAB PO SCH (09:49)
[2023-09-16] MEDS: Polyethylene Glycol 3350 17 GM Packet PO SCH (09:49)
[2023-09-16] MEDS: RIVASTIGMINE TARTRATE 1.5 MG PO SCH (09:55)
[2023-09-16] MEDS: prednisoLONE 1% Ophth Susp 5 ml Bottle EA EYE SCH ×2 (09:56→20:43)
[2023-09-16] MEDS: Timolol 0.5% Ophth Soln 5 ml Bottle EA EYE SCH ×2 (10:04→20:53)
[2023-09-16] MEDS: cloNIDine 0.1 MG TAB PO PRN ×2 (13:34→20:45)
[2023-09-16] MEDS: Latanoprost 0.005% Ophth Soln 2.5 ml Bottle EA EYE SCH (20:48)
[2023-09-17 06:44] LABS: Hematocrit 26.4 % (36.0-47.0); Hemoglobin 9.1 g/dL (12.0-16.0); Platelet Count 126 10x3/uL (130-400)
[2023-09-17] MEDS ORDERED: FLU VACC QS2023(65UP)/MF59C/PF 60 MCG/0.5 ML SYRINGE IM ONE (09:00)
[2023-09-17] MEDS: Polyethylene Glycol 3350 17 GM Packet PO SCH (10:48)
[2023-09-17] MEDS: Timolol 0.5% Ophth Soln 5 ml Bottle EA EYE SCH ×2 (10:51→20:11)
[2023-09-17] MEDS: prednisoLONE 1% Ophth Susp 5 ml Bottle EA EYE SCH ×2 (10:52→20:09)
[2023-09-17] MEDS: Docusate 100 MG CAP PO SCH (10:53)
[2023-09-17] MEDS: Folic Acid 1 MG TAB PO SCH (10:53)
[2023-09-17] MEDS: Multivitamin W/ Minerals 1 TAB PO SCH (10:53)
[2023-09-17] MEDS: Losartan 25 MG TAB PO SCH (10:53)
[2023-09-17] MEDS: RIVASTIGMINE TARTRATE 1.5 MG PO SCH (10:54)
[2023-09-17] MEDS: cloNIDine 0.1 MG TAB PO PRN ×2 (17:29→20:08)
[2023-09-17] MEDS: Latanoprost 0.005% Ophth Soln 2.5 ml Bottle EA EYE SCH (20:10)
[2023-09-18] MEDS: Losartan 25 MG TAB PO SCH (09:55)
[2023-09-18] MEDS: Folic Acid 1 MG TAB PO SCH (09:56)
[2023-09-18] MEDS: Multivitamin W/ Minerals 1 TAB PO SCH (09:56)
[2023-09-18] MEDS: Docusate 100 MG CAP PO SCH (09:56)
[2023-09-18] MEDS: Timolol 0.5% Ophth Soln 5 ml Bottle EA EYE SCH ×2 (09:58→20:57)
[2023-09-18] MEDS: prednisoLONE 1% Ophth Susp 5 ml Bottle EA EYE SCH (09:59)
[2023-09-18] MEDS: Polyethylene Glycol 3350 17 GM Packet PO SCH (10:05)
[2023-09-18] MEDS: ESTRADIOL VAG SCH (10:14)
[2023-09-18] MEDS: RIVASTIGMINE TARTRATE 1.5 MG PO SCH (10:15)
[2023-09-18 14:20] LABS: Bilirubin Small (Negative); Blood, Urine Small (Negative); Clarity Turbid (Clear); Glucose, Urine (Dipstick) Negative (Negative); Ketone, Urine 15 mg/dL (Negative); Leukocyte Small (Negative); Nitrite Negative (Negative); Protein, Urine (Dipstick) > or equal to 300 mg/dL (Neg-Trace)
[2023-09-18 14:22] LABS: Specific Gravity, Urine 1.022 (1.002-1.036)
[2023-09-18 14:27] LABS: Bacteria/HPF 4+ HPF (None Seen); CAUTI Indications for Culture Alt mental st,lethar; Squamous Epithelial 0-3 HPF (0-3)
[2023-09-18 14:28] LABS: Urine Culture Reflex Yes Yes
[2023-09-18] MEDS: prednisoLONE 1% Ophth Susp 5 ml Bottle R EYE SCH (20:55)
[2023-09-18] MEDS: Nitrofurantoin Monohyd/M-Cryst 100 MG CAP PO SCH (20:57)
[2023-09-18] MEDS: Latanoprost 0.005% Ophth Soln 2.5 ml Bottle EA EYE SCH (21:01)
[2023-09-18] MEDS: cloNIDine 0.1 MG TAB PO PRN (21:11)
[2023-09-19] MEDS: cloNIDine 0.1 MG TAB PO PRN ×2 (05:39→10:44)
[2023-09-19] MEDS: prednisoLONE 1% Ophth Susp 5 ml Bottle R EYE SCH ×2 (10:43→21:22)
[2023-09-19] MEDS: Nitrofurantoin Monohyd/M-Cryst 100 MG CAP PO SCH ×2 (10:44→21:21)
[2023-09-19] MEDS: Losartan 25 MG TAB PO SCH (10:44)
[2023-09-19] MEDS: Timolol 0.5% Ophth Soln 5 ml Bottle EA EYE SCH ×2 (10:45→21:22)
[2023-09-19] MEDS: Multivitamin W/ Minerals 1 TAB PO SCH (10:45)
[2023-09-19] MEDS: Folic Acid 1 MG TAB PO SCH (10:45)
[2023-09-19] MEDS: Polyethylene Glycol 3350 17 GM Packet PO SCH (10:47)
[2023-09-19] MEDS: Docusate 100 MG CAP PO SCH (10:47)
[2023-09-19] MEDS: Latanoprost 0.005% Ophth Soln 2.5 ml Bottle EA EYE SCH (21:21)
[2023-09-20] MEDS: Losartan 25 MG TAB PO SCH (10:07)
[2023-09-20] MEDS: Polyethylene Glycol 3350 17 GM Packet PO SCH (10:08)
[2023-09-20] MEDS: Nitrofurantoin Monohyd/M-Cryst 100 MG CAP PO SCH ×2 (10:09→21:01)
[2023-09-20] MEDS: Docusate 100 MG CAP PO SCH (10:09)
[2023-09-20] MEDS: prednisoLONE 1% Ophth Susp 5 ml Bottle R EYE SCH ×2 (10:09→21:00)
[2023-09-20] MEDS: Multivitamin W/ Minerals 1 TAB PO SCH (10:09)
[2023-09-20] MEDS: Folic Acid 1 MG TAB PO SCH (10:09)
[2023-09-20] MEDS: Timolol 0.5% Ophth Soln 5 ml Bottle EA EYE SCH ×2 (10:09→21:00)
[2023-09-20] MEDS: cloNIDine 0.1 MG TAB PO PRN ×2 (10:14→20:59)
[2023-09-20] MEDS: Latanoprost 0.005% Ophth Soln 2.5 ml Bottle EA EYE SCH (20:59)
[2023-09-21] MEDS ORDERED: Acetaminophen 325 MG TAB PO SCH (07:00)
[2023-09-21] MEDS: Losartan 25 MG TAB PO SCH (07:34)
[2023-09-21] MEDS: prednisoLONE 1% Ophth Susp 5 ml Bottle R EYE SCH ×2 (07:40→19:52)
[2023-09-21] MEDS: Timolol 0.5% Ophth Soln 5 ml Bottle EA EYE SCH ×2 (07:41→19:49)
[2023-09-21] MEDS: Nitrofurantoin Monohyd/M-Cryst 100 MG CAP PO SCH ×3 (14:00→19:43)
[2023-09-21] MEDS: cloNIDine 0.1 MG TAB PO PRN (14:17)
[2023-09-21] MEDS: Docusate 100 MG CAP PO SCH (17:55)
[2023-09-21] MEDS: Folic Acid 1 MG TAB PO SCH (17:55)
[2023-09-21] MEDS: ESTRADIOL VAG SCH (17:56)
[2023-09-21] MEDS: Polyethylene Glycol 3350 17 GM Packet PO SCH (17:57)
[2023-09-21] MEDS: Multivitamin W/ Minerals 1 TAB PO SCH (18:10)
[2023-09-21] MEDS: Latanoprost 0.005% Ophth Soln 2.5 ml Bottle EA EYE SCH (19:48)
[2023-09-22] MEDS: Losartan 25 MG TAB PO SCH (10:19)
[2023-09-22] MEDS: Multivitamin W/ Minerals 1 TAB PO SCH (10:19)
[2023-09-22] MEDS: Folic Acid 1 MG TAB PO SCH (10:20)
[2023-09-22] MEDS: Docusate 100 MG CAP PO SCH (10:20)
[2023-09-22] MEDS: Nitrofurantoin Monohyd/M-Cryst 100 MG CAP PO SCH ×2 (10:20→21:01)
[2023-09-22] MEDS: Polyethylene Glycol 3350 17 GM Packet PO SCH (10:21)
[2023-09-22] MEDS: Timolol 0.5% Ophth Soln 5 ml Bottle EA EYE SCH ×2 (10:21→21:04)
[2023-09-22] MEDS: prednisoLONE 1% Ophth Susp 5 ml Bottle R EYE SCH ×2 (10:21→21:01)
[2023-09-22] MEDS: Latanoprost 0.005% Ophth Soln 2.5 ml Bottle EA EYE SCH (21:10)
[2023-09-23] MEDS ORDERED: Hydrochlorothiazide 25 MG TAB PO SCH ×2 (09:00→13:30)
[2023-09-23] MEDS: Polyethylene Glycol 3350 17 GM Packet PO SCH (09:17)
[2023-09-23] MEDS: Timolol 0.5% Ophth Soln 5 ml Bottle EA EYE SCH ×2 (09:20→20:19)
[2023-09-23] MEDS: Folic Acid 1 MG TAB PO SCH (09:28)
[2023-09-23] MEDS: Docusate 100 MG CAP PO SCH (09:28)
[2023-09-23] MEDS: Losartan 25 MG TAB PO SCH (09:29)
[2023-09-23] MEDS: Multivitamin W/ Minerals 1 TAB PO SCH (09:29)
[2023-09-23] MEDS: Nitrofurantoin Monohyd/M-Cryst 100 MG CAP PO SCH ×2 (09:29→20:17)
[2023-09-23] MEDS: prednisoLONE 1% Ophth Susp 5 ml Bottle R EYE SCH ×2 (09:30→20:19)
[2023-09-23] MEDS: cloNIDine 0.1 MG TAB PO PRN (17:53)
[2023-09-23] MEDS: Latanoprost 0.005% Ophth Soln 2.5 ml Bottle EA EYE SCH (20:17)
[2023-09-24 05:09] LABS: Hematocrit 26.1 % (36.0-47.0); Hemoglobin 9.3 g/dL (12.0-16.0); Platelet Count 121 10x3/uL (130-400)
[2023-09-24] MEDS ORDERED: Hydrochlorothiazide 25 MG TAB PO SCH (09:00)
[2023-09-24] MEDS: Losartan 25 MG TAB PO SCH (10:07)
[2023-09-24] MEDS: Hydrochlorothiazide 25 MG TAB PO SCH (10:07)
[2023-09-24] MEDS: Nitrofurantoin Monohyd/M-Cryst 100 MG CAP PO SCH ×2 (10:07→21:13)
[2023-09-24] MEDS: Folic Acid 1 MG TAB PO SCH (10:07)
[2023-09-24] MEDS: Docusate 100 MG CAP PO SCH (10:07)
[2023-09-24] MEDS: Multivitamin W/ Minerals 1 TAB PO SCH (10:07)
[2023-09-24] MEDS: ESTRADIOL VAG SCH (10:08)
[2023-09-24] MEDS: Polyethylene Glycol 3350 17 GM Packet PO SCH (10:08)
[2023-09-24] MEDS: Timolol 0.5% Ophth Soln 5 ml Bottle EA EYE SCH ×2 (10:10→21:13)
[2023-09-24] MEDS: prednisoLONE 1% Ophth Susp 5 ml Bottle R EYE SCH ×2 (10:15→21:14)
[2023-09-24] MEDS: cloNIDine 0.1 MG TAB PO PRN (11:30)
[2023-09-24] MEDS ORDERED: Amlodipine 5 MG TAB PO SCH (15:00)
[2023-09-24] MEDS: Latanoprost 0.005% Ophth Soln 2.5 ml Bottle EA EYE SCH (21:13)
[2023-09-25 05:15] LABS: #Basophils 0.1 thou/uL (0.0-0.2); #Eosinphils 0.1 thou/uL (0.0-0.7); #Lymphocytes 1.4 thou/uL (1.20-3.40); #Monocytes 0.3 thou/uL (0.11-0.59); #Neutrophils 1.8 thou/uL (1.40-6.50); %Basophils 2.8 % (0.0-1.0); %Eosinophils 3.4 % (0.0-10.0); %Lymphocytes 37.4 % (21.0-51.0); %Monocytes 8.8 % (0.0-10.0); %Neutrophils 47.7 % (42.0-75.0); Hematocrit 27.5 % (36.0-47.0); Mean Corpuscular HGB CONC 36.6 g/dL (32.0-36.0); Mean Corpuscular Hemoglobin 31.4 pg (27.0-31.0); Mean Corpuscular Volume 85.8 fl (78.0-98.0); Platelet Count 129 10x3/uL (130-400); RBC Distribution Width 11.6 % (11.5-14.5); White Blood Cell (WBC) Count 3.8 10x3/uL (4.8-10.8)
[2023-09-25] MEDS: cloNIDine 0.1 MG TAB PO PRN ×2 (05:22→18:47)
[2023-09-25] MEDS: Timolol 0.5% Ophth Soln 5 ml Bottle EA EYE SCH ×2 (09:03→21:09)
[2023-09-25] MEDS: prednisoLONE 1% Ophth Susp 5 ml Bottle R EYE SCH ×2 (09:03→21:18)
[2023-09-25] MEDS: Folic Acid 1 MG TAB PO SCH (09:09)
[2023-09-25] MEDS: Polyethylene Glycol 3350 17 GM Packet PO SCH (09:09)
[2023-09-25] MEDS: Docusate 100 MG CAP PO SCH (09:09)
[2023-09-25] MEDS: Nitrofurantoin Monohyd/M-Cryst 100 MG CAP PO SCH (09:09)
[2023-09-25] MEDS: Multivitamin W/ Minerals 1 TAB PO SCH (09:09)
[2023-09-25] MEDS: Hydrochlorothiazide 25 MG TAB PO SCH (09:10)
[2023-09-25] MEDS: Amlodipine 5 MG TAB PO SCH (09:10)
[2023-09-25] MEDS: Losartan 25 MG TAB PO SCH (09:10)
[2023-09-25] MEDS: Latanoprost 0.005% Ophth Soln 2.5 ml Bottle EA EYE SCH (21:14)
[2023-09-26] MEDS: Timolol 0.5% Ophth Soln 5 ml Bottle EA EYE SCH ×2 (09:05→21:47)
[2023-09-26] MEDS: Polyethylene Glycol 3350 17 GM Packet PO SCH (09:06)
[2023-09-26] MEDS: Docusate 100 MG CAP PO SCH (09:07)
[2023-09-26] MEDS: Losartan 25 MG TAB PO SCH (09:07)
[2023-09-26] MEDS: Hydrochlorothiazide 25 MG TAB PO SCH (09:07)
[2023-09-26] MEDS: Amlodipine 5 MG TAB PO SCH (09:07)
[2023-09-26] MEDS: Folic Acid 1 MG TAB PO SCH (09:07)
[2023-09-26] MEDS: Multivitamin W/ Minerals 1 TAB PO SCH (09:08)
[2023-09-26] MEDS: prednisoLONE 1% Ophth Susp 5 ml Bottle R EYE SCH ×2 (09:08→21:47)
[2023-09-26] MEDS ORDERED: ASPERCREME TOP PRN (15:57)
[2023-09-26] MEDS: Latanoprost 0.005% Ophth Soln 2.5 ml Bottle EA EYE SCH (21:47)
[2023-09-27] MEDS: cloNIDine 0.1 MG TAB PO PRN ×2 (04:29→15:47)
[2023-09-27] MEDS: Amlodipine 5 MG TAB PO SCH (09:37)
[2023-09-27] MEDS: Multivitamin W/ Minerals 1 TAB PO SCH (09:37)
[2023-09-27] MEDS: Losartan 25 MG TAB PO SCH (09:38)
[2023-09-27] MEDS: Folic Acid 1 MG TAB PO SCH (09:38)
[2023-09-27] MEDS: Hydrochlorothiazide 25 MG TAB PO SCH (09:38)
[2023-09-27] MEDS: Docusate 100 MG CAP PO SCH (09:38)
[2023-09-27] MEDS: Polyethylene Glycol 3350 17 GM Packet PO SCH (09:38)
[2023-09-27] MEDS: Timolol 0.5% Ophth Soln 5 ml Bottle EA EYE SCH ×2 (09:39→20:18)
[2023-09-27] MEDS: prednisoLONE 1% Ophth Susp 5 ml Bottle R EYE SCH (09:39)
[2023-09-27] MEDS: ESTRADIOL VAG SCH (11:02)
[2023-09-27] MEDS: Proctozone-HC 30 GM TUBE TOP SCH (11:02)
[2023-09-27] MEDS: Latanoprost 0.005% Ophth Soln 2.5 ml Bottle EA EYE SCH (20:18)
[2023-09-28] MEDS ORDERED: Amlodipine 5 MG TAB PO SCH (08:30)
[2023-09-28 09:36] LABS: Eosinophils 1 % (0-10); Hematocrit 29.1 % (36.0-47.0); Lymphocytes 34 % (21-51); MDiff Complete? YES; Mean Corpuscular HGB CONC 34.4 g/dL (32.0-36.0); Mean Corpuscular Hemoglobin 30.4 pg (27.0-31.0); Mean Corpuscular Volume 88.2 fl (78.0-98.0); Mean Platelet Volume 7.5 fL (7.4-10.4); Monocytes 8 % (0-10); Neutrophil 57 % (42-75); Platelet Count 134 10x3/uL (130-400); RBC Distribution Width 12.2 % (11.5-14.5); Red Blood Cell (RBC) Count 3.29 mill/uL (4.20-5.40); White Blood Cell (WBC) Count 3.4 10x3/uL (4.8-10.8)
[2023-09-28] MEDS: prednisoLONE 1% Ophth Susp 5 ml Bottle R EYE SCH (10:03)
[2023-09-28] MEDS: Polyethylene Glycol 3350 17 GM Packet PO SCH (10:05)
[2023-09-28] MEDS: Folic Acid 1 MG TAB PO SCH (10:06)
[2023-09-28] MEDS: Losartan 25 MG TAB PO SCH (10:06)
[2023-09-28] MEDS: Docusate 100 MG CAP PO SCH (10:06)
[2023-09-28] MEDS: Hydrochlorothiazide 25 MG TAB PO SCH (10:06)
[2023-09-28] MEDS: Multivitamin W/ Minerals 1 TAB PO SCH (10:06)
[2023-09-28] MEDS: Timolol 0.5% Ophth Soln 5 ml Bottle EA EYE SCH ×2 (10:20→21:06)
[2023-09-28 10:22] LABS: ALT (SGPT) 12 U/L (8-55); AST (SGOT) 19 U/L (5-34); Albumin 2.1 g/dL (3.4-4.8); Alkaline Phosphatase 43 U/L (40-110); Anion Gap 14 mmol/L (10-20); BUN (Urea Nitrogen) 20 mg/dL (9.8-20.1); Bilirubin, Total 0.6 mg/dL (0.2-1.2); Calc. Creatinine Clearance 54 mL/min (70-130); Calcium 9.3 mg/dL (7.8-10.44); Carbon Dioxide 25 mmol/L (23-31); Chloride 104 mmol/L (98-107); Estimated GFR 74; Glucose 143 mg/dL (83-110); Potassium 3.7 mmol/L (3.5-5.1); Protein, Total 4.1 g/dL (5.8-8.1)
[2023-09-28] MEDS: Amlodipine 5 MG TAB PO SCH (10:34)
[2023-09-28 10:45] LABS: Sodium 139 mmol/L (136-145)
[2023-09-28] MEDS: Proctozone-HC 30 GM TUBE TOP SCH (12:36)
[2023-09-28] MEDS: Latanoprost 0.005% Ophth Soln 2.5 ml Bottle EA EYE SCH (21:06)
[2023-09-29] MEDS: Proctozone-HC 30 GM TUBE TOP SCH (09:41)
[2023-09-29] MEDS: Timolol 0.5% Ophth Soln 5 ml Bottle EA EYE SCH ×2 (10:40→21:41)
[2023-09-29] MEDS: Polyethylene Glycol 3350 17 GM Packet PO SCH (10:46)
[2023-09-29] MEDS: Multivitamin W/ Minerals 1 TAB PO SCH (10:48)
[2023-09-29] MEDS: Losartan 25 MG TAB PO SCH (10:48)
[2023-09-29] MEDS: Hydrochlorothiazide 25 MG TAB PO SCH (10:49)
[2023-09-29] MEDS: Folic Acid 1 MG TAB PO SCH (10:50)
[2023-09-29] MEDS: Docusate 100 MG CAP PO SCH (10:50)
[2023-09-29] MEDS: Amlodipine 5 MG TAB PO SCH ×2 (10:51→10:55)
[2023-09-29] MEDS: prednisoLONE 1% Ophth Susp 5 ml Bottle R EYE SCH (10:53)
[2023-09-29] MEDS: Latanoprost 0.005% Ophth Soln 2.5 ml Bottle EA EYE SCH (21:41)
[2023-09-29] MEDS: Megestrol Acetate 40 MG TAB PO SCH (21:42)
[2023-09-30] MEDS: Acetaminophen 325 MG TAB PO PRN ×2 (04:02→11:03)
[2023-09-30] MEDS: Megestrol Acetate 40 MG TAB PO SCH ×2 (10:33→20:36)
[2023-09-30] MEDS: Amlodipine 5 MG TAB PO SCH ×2 (10:33→11:06)
[2023-09-30] MEDS: Losartan 25 MG TAB PO SCH ×2 (10:35→11:00)
[2023-09-30] MEDS: Hydrochlorothiazide 25 MG TAB PO SCH (10:39)
[2023-09-30] MEDS: Docusate 100 MG CAP PO SCH (10:39)
[2023-09-30] MEDS: Multivitamin W/ Minerals 1 TAB PO SCH (10:40)
[2023-09-30] MEDS: Folic Acid 1 MG TAB PO SCH (10:40)
[2023-09-30] MEDS: Proctozone-HC 30 GM TUBE TOP SCH (10:42)
[2023-09-30] MEDS: Polyethylene Glycol 3350 17 GM Packet PO SCH (10:49)
[2023-09-30] MEDS: Timolol 0.5% Ophth Soln 5 ml Bottle EA EYE SCH ×2 (11:01→20:42)
[2023-09-30] MEDS: prednisoLONE 1% Ophth Susp 5 ml Bottle R EYE SCH (11:01)
[2023-09-30] MEDS: ESTRADIOL VAG SCH (11:03)
[2023-09-30] MEDS: Carvedilol 6.25 MG TAB PO SCH ×2 (11:05→17:13)
[2023-09-30] MEDS ORDERED: Docusate 100 MG CAP PO PRN (11:06)
[2023-09-30 20:03] LABS: Bilirubin Small (Negative); Blood, Urine Trace (Negative); Clarity Turbid (Clear); Glucose, Urine (Dipstick) Negative (Negative); Ketone, Urine Trace mg/dL (Negative); Leukocyte Moderate (Negative); Nitrite Negative (Negative); Protein, Urine (Dipstick) > or equal to 300 mg/dL (Neg-Trace); Specific Gravity, Urine 1.025 (1.005-1.030); Urobilinogen 0.2 mg/dL (Less than 2); pH, Urine 5.5 (5.0-9.0)
[2023-09-30 20:29] LABS: Bacteria/HPF 4+ HPF (None Seen); CAUTI Indications for Culture Alt mental st,lethar; RBC/HPF 0-3 HPF (0-3); Squamous Epithelial 0-3 HPF (0-3); Yeast-Hyphae Rare HPF (None Seen)
[2023-09-30 20:31] LABS: Urine Culture Reflex Yes Yes
[2023-09-30] MEDS: Latanoprost 0.005% Ophth Soln 2.5 ml Bottle EA EYE SCH (20:36)
[2023-10-01] MEDS: Proctozone-HC 30 GM TUBE TOP SCH (09:28)
[2023-10-01] MEDS: Multivitamin W/ Minerals 1 TAB PO SCH (09:33)
[2023-10-01] MEDS: Carvedilol 6.25 MG TAB PO SCH ×2 (09:33→17:05)
[2023-10-01] MEDS: Megestrol Acetate 40 MG TAB PO SCH ×2 (09:33→20:16)
[2023-10-01] MEDS: Folic Acid 1 MG TAB PO SCH (09:33)
[2023-10-01] MEDS: Hydrochlorothiazide 25 MG TAB PO SCH (09:33)
[2023-10-01] MEDS: Amlodipine 5 MG TAB PO SCH (09:34)
[2023-10-01] MEDS: Timolol 0.5% Ophth Soln 5 ml Bottle EA EYE SCH ×2 (09:35→20:21)
[2023-10-01] MEDS: Polyethylene Glycol 3350 17 GM Packet PO SCH (09:36)
[2023-10-01] MEDS: prednisoLONE 1% Ophth Susp 5 ml Bottle R EYE SCH (09:36)
[2023-10-01] MEDS: Latanoprost 0.005% Ophth Soln 2.5 ml Bottle EA EYE SCH (20:16)
[2023-10-02] MEDS: Polyethylene Glycol 3350 17 GM Packet PO SCH (08:57)
[2023-10-02] MEDS: Megestrol Acetate 40 MG TAB PO SCH ×2 (08:57→20:51)
[2023-10-02] MEDS: Amlodipine 5 MG TAB PO SCH (08:57)
[2023-10-02] MEDS: Hydrochlorothiazide 25 MG TAB PO SCH (08:58)
[2023-10-02] MEDS: Losartan 25 MG TAB PO SCH (08:58)
[2023-10-02] MEDS: Carvedilol 6.25 MG TAB PO SCH ×2 (08:58→16:54)
[2023-10-02] MEDS: Proctozone-HC 30 GM TUBE TOP SCH (08:58)
[2023-10-02] MEDS: Multivitamin W/ Minerals 1 TAB PO SCH (08:58)
[2023-10-02] MEDS: Folic Acid 1 MG TAB PO SCH (08:58)
[2023-10-02] MEDS: Timolol 0.5% Ophth Soln 5 ml Bottle EA EYE SCH ×2 (09:00→20:52)
[2023-10-02] MEDS: prednisoLONE 1% Ophth Susp 5 ml Bottle R EYE SCH (09:01)
[2023-10-02] MEDS: Latanoprost 0.005% Ophth Soln 2.5 ml Bottle EA EYE SCH (20:54)
[2023-10-03] MEDS: Amlodipine 5 MG TAB PO SCH (09:11)
[2023-10-03] MEDS: Carvedilol 6.25 MG TAB PO SCH ×2 (09:11→18:01)
[2023-10-03] MEDS: Multivitamin W/ Minerals 1 TAB PO SCH (09:11)
[2023-10-03] MEDS: Megestrol Acetate 40 MG TAB PO SCH ×2 (09:11→21:49)
[2023-10-03] MEDS: Polyethylene Glycol 3350 17 GM Packet PO SCH (09:11)
[2023-10-03] MEDS: Hydrochlorothiazide 25 MG TAB PO SCH (09:11)
[2023-10-03] MEDS: Losartan 25 MG TAB PO SCH (09:11)
[2023-10-03] MEDS: Folic Acid 1 MG TAB PO SCH (09:12)
[2023-10-03] MEDS: ESTRADIOL VAG SCH (09:13)
[2023-10-03] MEDS: Timolol 0.5% Ophth Soln 5 ml Bottle EA EYE SCH ×3 (09:13→21:49)
[2023-10-03] MEDS: prednisoLONE 1% Ophth Susp 5 ml Bottle R EYE SCH ×2 (09:13→09:23)
[2023-10-03] MEDS: Proctozone-HC 30 GM TUBE TOP SCH (09:17)
[2023-10-03] MEDS ORDERED: Cephalexin 250 MG CAP PO SCH ×2 (09:45→21:00)
[2023-10-03] MEDS ORDERED: prednisoLONE 1% Ophth Susp 5 ml Bottle R EYE SCH (10:30)
[2023-10-03] MEDS ORDERED: Timolol 0.5% Ophth Soln 5 ml Bottle EA EYE SCH (10:30)
[2023-10-03] MEDS ORDERED: Cefuroxime 500 MG TAB PO SCH (11:30)
[2023-10-03] MEDS: Latanoprost 0.005% Ophth Soln 2.5 ml Bottle EA EYE SCH (21:49)
[2023-10-03] MEDS: Cefuroxime 500 MG TAB PO SCH (21:49)
[2023-10-04] MEDS: Losartan 25 MG TAB PO SCH (09:57)
[2023-10-04] MEDS: Amlodipine 5 MG TAB PO SCH (09:58)
[2023-10-04] MEDS: Cefuroxime 500 MG TAB PO SCH ×2 (09:59→20:13)
[2023-10-04] MEDS: Megestrol Acetate 40 MG TAB PO SCH ×2 (10:00→20:12)
[2023-10-04] MEDS: Carvedilol 6.25 MG TAB PO SCH ×3 (10:00→18:01)
[2023-10-04] MEDS: Multivitamin W/ Minerals 1 TAB PO SCH (10:01)
[2023-10-04] MEDS: Folic Acid 1 MG TAB PO SCH (10:01)
[2023-10-04] MEDS: Proctozone-HC 30 GM TUBE TOP SCH (10:01)
[2023-10-04] MEDS: Hydrochlorothiazide 25 MG TAB PO SCH (10:01)
[2023-10-04] MEDS: Polyethylene Glycol 3350 17 GM Packet PO SCH (10:02)
[2023-10-04] MEDS: Timolol 0.5% Ophth Soln 5 ml Bottle EA EYE SCH ×2 (10:02→20:21)
[2023-10-04] MEDS: prednisoLONE 1% Ophth Susp 5 ml Bottle R EYE SCH (10:03)
[2023-10-04] MEDS: Latanoprost 0.005% Ophth Soln 2.5 ml Bottle EA EYE SCH (20:13)
[2023-10-05 06:13] VITALS: TEMP 98.8
[2023-10-05 11:52] VITALS: BP 150/91
[2023-10-05] MEDS: Folic Acid 1 MG TAB PO SCH (11:53)
[2023-10-05] MEDS: Amlodipine 5 MG TAB PO SCH (11:53)
[2023-10-05] MEDS: Megestrol Acetate 40 MG TAB PO SCH (11:53)
[2023-10-05] MEDS: Losartan 25 MG TAB PO SCH (11:53)
[2023-10-05] MEDS: Multivitamin W/ Minerals 1 TAB PO SCH (11:53)
[2023-10-05] MEDS: Hydrochlorothiazide 25 MG TAB PO SCH (11:53)
[2023-10-05] MEDS: Carvedilol 6.25 MG TAB PO SCH ×2 (11:54→17:00)
[2023-10-05] MEDS: Cefuroxime 500 MG TAB PO SCH (11:54)
[2023-10-05] MEDS: Polyethylene Glycol 3350 17 GM Packet PO SCH (11:55)
[2023-10-05] MEDS: Proctozone-HC 30 GM TUBE TOP SCH (11:55)
[2023-10-05] MEDS: prednisoLONE 1% Ophth Susp 5 ml Bottle R EYE SCH (11:57)
[2023-10-05] MEDS: Timolol 0.5% Ophth Soln 5 ml Bottle EA EYE SCH (11:58)
== END 2023-10-05 17:35 | disposition home health service (06) | DRG 948 ==
LOC: BURMED 15:30
PROVIDERS: ADMIT Family Medicine; ATTEND Family Medicine
DX: R53.81 Other malaise (principal); N39.0 Urinary tract infection, site not specified; I10 Essential (primary) hypertension; E11.9 Type 2 diabetes mellitus without complications; F03.90 Unspecified dementia, unspecified severity, without behavioral disturbance, psychotic disturbance, mood disturbance, and anxiety; K21.9 Gastro-esophageal reflux disease without esophagitis; F41.0 Panic disorder [episodic paroxysmal anxiety]; I25.10 Atherosclerotic heart disease of native coronary artery without angina pectoris; R13.10 Dysphagia, unspecified; Z88.8 Allergy status to other drugs, medicaments and biological substances; Z88.1 Allergy status to other antibiotic agents; Z88.5 Allergy status to narcotic agent; Z91.040 Latex allergy status; Z90.49 Acquired absence of other specified parts of digestive tract; Z90.710 Acquired absence of both cervix and uterus; Z98.890 Other specified postprocedural states; Z91.09 Other allergy status, other than to drugs and biological substances; Z88.2 Allergy status to sulfonamides; Z79.899 Other long term (current) drug therapy
CPT/HCPCS: 36415; 36416; 80053; 81001; 82565; 82728; 85014; 85018; 85025; 85049; 86140; 87077; 87086; 87186; J1650; Q0162; S0179

== ENCOUNTER 2024-04-01 13:46 | Emergency (ER) | payer MEDICARE, MEDICAID ==
[2024-04-01 14:33] LABS: #Basophils 0.1 thou/uL (0.0-0.2); #Eosinphils 0.1 thou/uL (0.0-0.7); #Lymphocytes 0.9 thou/uL (1.20-3.40); #Monocytes 0.3 thou/uL (0.11-0.59); #Neutrophils 2.6 thou/uL (1.40-6.50); %Basophils 1.7 % (0.0-1.0); %Eosinophils 3.6 % (0.0-10.0); %Monocytes 8.1 % (0.0-10.0); %Neutrophils 63.7 % (42.0-75.0); Hematocrit 25.1 % (36.0-47.0); Hemoglobin 8.8 g/dL (12.0-16.0); Mean Corpuscular HGB CONC 34.9 g/dL (32.0-36.0); Mean Corpuscular Hemoglobin 32.1 pg (27.0-31.0); Mean Corpuscular Volume 92.1 fl (78.0-98.0); Mean Platelet Volume 4.9 fL (7.4-10.4); Platelet Count 169 10x3/uL (130-400); Red Blood Cell (RBC) Count 2.73 mill/uL (4.20-5.40); White Blood Cell (WBC) Count 4.1 10x3/uL (4.8-10.8)
[2024-04-01 14:51] LABS: ALT (SGPT) 15 U/L (8-55); AST (SGOT) 23 U/L (5-34); Albumin 2.8 g/dL (3.4-4.8); Alkaline Phosphatase 41 U/L (40-110); Anion Gap 13 mmol/L (10-20); BUN (Urea Nitrogen) 36 mg/dL (9.8-20.1); Bilirubin, Total 0.6 mg/dL (0.2-1.2); Calc. Creatinine Clearance 0 mL/min (70-130); Calcium 9.3 mg/dL (7.8-10.44); Carbon Dioxide 23 mmol/L (23-31); Chloride 105 mmol/L (98-107); Estimated GFR 47; Globulin 2.2 g/dL (2.4-3.5); Glucose 132 mg/dL (83-110); Potassium 4.3 mmol/L (3.5-5.1); Sodium 137 mmol/L (136-145)
[2024-04-01 15:57] LABS: Bilirubin Negative (Negative); Blood, Urine Moderate (Negative); Clarity Slightly Cloudy (Clear); Glucose, Urine (Dipstick) Negative (Negative); Ketone, Urine Negative (Negative); Leukocyte Small (Negative); Nitrite Negative (Negative); Protein, Urine (Dipstick) > or equal to 300 mg/dL (Neg-Trace); Urobilinogen 0.2 mg/dL (Less than 2); pH, Urine 5.5 (5.0-9.0)
[2024-04-01 16:08] LABS: Bacteria/HPF 4+ HPF (None Seen); CAUTI Indications for Culture Dysuria,urgency,freq; Squamous Epithelial 0-3 HPF (0-3)
[2024-04-01 16:09] LABS: Urine Culture Reflex Yes Yes
[2024-04-01] MEDS ORDERED: Nitrofurantoin Monohyd/M-Cryst 100 MG CAP ONE (16:19)
[2024-04-01] MEDS ORDERED: Cephalexin 250 MG CAP ONE (16:22)
== END 2024-04-01 16:37 | disposition home or self-care (01) ==
LOC: BURERS 13:46
DX: N39.0 Urinary tract infection, site not specified (principal); E11.9 Type 2 diabetes mellitus without complications; I10 Essential (primary) hypertension
CPT/HCPCS: 36415; 80053; 81001; 85025; 87077; 87086; 99284

== ENCOUNTER 2024-04-21 14:16 | Inpatient (IN) | payer MEDICARE, MEDICAID ==
[2024-04-21 15:34] LABS: #Basophils 0.1 thou/uL (0.0-0.2); #Eosinphils 0.1 thou/uL (0.0-0.7); #Lymphocytes 0.9 thou/uL (1.20-3.40); #Monocytes 0.4 thou/uL (0.11-0.59); #Neutrophils 3.8 thou/uL (1.40-6.50); %Basophils 1.6 % (0.0-1.0); %Eosinophils 1.4 % (0.0-10.0); %Lymphocytes 17.7 % (21.0-51.0); %Monocytes 8.3 % (0.0-10.0); Hematocrit 24.4 % (36.0-47.0); Hemoglobin 8.9 g/dL (12.0-16.0); Mean Corpuscular HGB CONC 36.3 g/dL (32.0-36.0); Mean Corpuscular Hemoglobin 32.2 pg (27.0-31.0); Mean Corpuscular Volume 88.6 fl (78.0-98.0); Mean Platelet Volume 5.3 fL (7.4-10.4); Platelet Count 192 10x3/uL (130-400); Red Blood Cell (RBC) Count 2.76 mill/uL (4.20-5.40); White Blood Cell (WBC) Count 5.3 10x3/uL (4.8-10.8)
[2024-04-21 15:55] LABS: Troponin I 0.012 ng/mL (< 0.028)
[2024-04-21 15:57] LABS: Bilirubin Small (Negative); Blood, Urine Moderate (Negative); Clarity Turbid (Clear); Glucose, Urine (Dipstick) Negative (Negative); Ketone, Urine Negative (Negative); Leukocyte Small (Negative); Nitrite Negative (Negative); Protein, Urine (Dipstick) > or equal to 300 mg/dL (Neg-Trace); Urobilinogen 0.2 mg/dL (Less than 2); pH, Urine 5.5 (5.0-9.0)
[2024-04-21 16:01] LABS: ALT (SGPT) 14 U/L (8-55); AST (SGOT) 32 U/L (5-34); Albumin 2.5 g/dL (3.4-4.8); Alkaline Phosphatase 52 U/L (40-110); Anion Gap 12 mmol/L (10-20); BUN (Urea Nitrogen) 50 mg/dL (9.8-20.1); Bilirubin, Total 0.3 mg/dL (0.2-1.2); Calc. Creatinine Clearance 0 mL/min (70-130); Calcium 8.2 mg/dL (7.8-10.44); Carbon Dioxide 21 mmol/L (23-31); Chloride 104 mmol/L (98-107); Estimated GFR 38; Globulin 2.2 g/dL (2.4-3.5); Glucose 128 mg/dL (83-110); Magnesium 2.5 mg/dL (1.6-2.6); Potassium 4.9 mmol/L (3.5-5.1); Protein, Total 4.7 g/dL (5.8-8.1); Sodium 132 mmol/L (136-145)
[2024-04-21 16:02] LABS: Bacteria/HPF 4+ HPF (None Seen); CAUTI Indications for Culture Dysuria,urgency,freq; Squamous Epithelial 0-3 HPF (0-3); WBC/HPF Greater Than 50 HPF (0-3)
[2024-04-21 16:03] LABS: Urine Culture Reflex Yes Yes
[2024-04-21] MEDS ORDERED: GLYCERIN PR PRN (20:29)
[2024-04-21] MEDS ORDERED: Artificial Tear Ophth Sol 15 ML BOT EA EYE PRN (20:29)
[2024-04-21] MEDS ORDERED: Senokot S 8.6-50 MG TAB PO PRN (20:29)
[2024-04-21] MEDS ORDERED: Melatonin 3 MG TAB PO PRN (20:29)
[2024-04-21] MEDS ORDERED: Docusate 100 MG CAP PO PRN (20:29)
[2024-04-21] MEDS: Sertraline 25 MG TAB PO SCH (21:39)
[2024-04-21] MEDS: Latanoprost 0.005% Ophth Soln 2.5 ml Bottle EA EYE SCH (21:40)
[2024-04-21] MEDS: Famotidine 20 MG TAB PO SCH (21:41)
[2024-04-21] MEDS: Timolol 0.5% Ophth Soln 5 ml Bottle EA EYE SCH (21:41)
[2024-04-21 23:13] VITALS: BMI 21.6
[2024-04-22] MEDS: Enoxaparin 30 MG (0.3 mL) SYRINGE SC SCH (09:13)
[2024-04-22] MEDS: Losartan 25 MG TAB PO SCH (09:13)
[2024-04-22] MEDS: Amlodipine 5 MG TAB PO SCH (09:14)
[2024-04-22] MEDS: Folic Acid 1 MG TAB PO SCH (09:14)
[2024-04-22] MEDS: Multivit, Therapeutic 1 TAB PO SCH (09:14)
[2024-04-22] MEDS: Furosemide 20 MG TAB PO SCH (09:15)
[2024-04-22] MEDS: Ertapenem 1 GM in Sodium Chloride 0.9% 100 ML IVPB SCH (09:15)
[2024-04-22] MEDS: Polyethylene Glycol 3350 17 GM Packet PO SCH (09:16)
[2024-04-23 09:26] LABS: #Basophils 0.1 thou/uL (0.0-0.2); #Eosinphils 0.1 thou/uL (0.0-0.7); #Lymphocytes 0.8 thou/uL (1.20-3.40); #Monocytes 0.5 thou/uL (0.11-0.59); #Neutrophils 3.4 thou/uL (1.40-6.50); %Basophils 1.2 % (0.0-1.0); %Eosinophils 1.8 % (0.0-10.0); %Lymphocytes 16.8 % (21.0-51.0); %Monocytes 9.7 % (0.0-10.0); %Neutrophils 70.5 % (42.0-75.0); Hematocrit 25.2 % (36.0-47.0); Hemoglobin 8.9 g/dL (12.0-16.0); Mean Corpuscular HGB CONC 35.4 g/dL (32.0-36.0); Mean Corpuscular Hemoglobin 31.3 pg (27.0-31.0); Mean Corpuscular Volume 88.5 fl (78.0-98.0); Mean Platelet Volume 5.3 fL (7.4-10.4); Platelet Count 161 10x3/uL (130-400); RBC Distribution Width 11.9 % (11.5-14.5); Red Blood Cell (RBC) Count 2.84 mill/uL (4.20-5.40); White Blood Cell (WBC) Count 4.8 10x3/uL (4.8-10.8)
[2024-04-23 09:41] LABS: Anion Gap 13 mmol/L (10-20); BUN (Urea Nitrogen) 48 mg/dL (9.8-20.1); Calc. Creatinine Clearance 33 mL/min (70-130); Calcium 8.3 mg/dL (7.8-10.44); Carbon Dioxide 23 mmol/L (23-31); Chloride 104 mmol/L (98-107); Estimated GFR 45; Glucose 129 mg/dL (83-110); Sodium 136 mmol/L (136-145)
[2024-04-23 14:23] VITALS: BMI 21.6
[2024-04-23] MEDS: ESTRADIOL VAG SCH (21:58)
[2024-04-24 05:51] VITALS: BP 154/80; TEMP 97.6
[2024-04-24] MEDS ORDERED: Sertraline 25 MG TAB PO SCH (21:00)
== END 2024-04-24 07:48 | disposition swing bed (61) | DRG 690 ==
LOC: BURERS 14:16 → UNDOADMIN 18:12 → BURMED 18:12
PROVIDERS: ADMIT Family Medicine; ATTEND Family Medicine
DX: N39.0 Urinary tract infection, site not specified (principal); F03.918 Unspecified dementia, unspecified severity, with other behavioral disturbance; R53.81 Other malaise; I10 Essential (primary) hypertension; B95.7 Other staphylococcus as the cause of diseases classified elsewhere; K59.09 Other constipation; R33.9 Retention of urine, unspecified; E86.0 Dehydration; K21.9 Gastro-esophageal reflux disease without esophagitis; E11.9 Type 2 diabetes mellitus without complications; K22.2 Esophageal obstruction; Z98.890 Other specified postprocedural states; Z90.49 Acquired absence of other specified parts of digestive tract; Z90.710 Acquired absence of both cervix and uterus; Z98.49 Cataract extraction status, unspecified eye; Z88.1 Allergy status to other antibiotic agents; Z88.5 Allergy status to narcotic agent; Z91.013 Allergy to seafood
CPT/HCPCS: 36415; 71045; 80048; 80053; 81001; 83735; 83880; 84484; 85025; 87040; 87077; 87086; 87149; 93005; 94760; 96374; J1335; J1650; J3490